=== PATIENT | female | born 1940 | race Caucasian/White ===

== ENCOUNTER → 2020-03-12 | Outpatient (CLI) | payer MEDICARE, OTHER ==
[~2020-03-12] MED LIST: DILT120T4 PO; ESOM40CA PO; HYDR12.517 PO; PITA2TAB2 PO; RAMI10CA36 PO; [UNRECOGNIZED DRUG - OTHER] PO
== END | disposition home or self-care (01) ==
LOC: CFH 08:01
PROVIDERS: ATTEND Internal Medicine Cardiovascular Disease
DX: Z13.6 Encounter for screening for cardiovascular disorders (principal); R06.02 Shortness of breath; E78.2 Mixed hyperlipidemia; R91.1 Solitary pulmonary nodule; I25.9 Chronic ischemic heart disease, unspecified
CPT/HCPCS: 75571; 78452; 93017; A9502